=== PATIENT | female | born 1995 | race African-American/Black ===

== ENCOUNTER 2017-06-20 17:03 | Emergency (ER) | payer OTHER ==
[2017-06-20 17:16] VITALS: BP 142/95
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
[2017-06-20] MEDS ORDERED: KETOROLAC TROMETHAMINE 60 MG/2 ML SDV IM ONE (18:01)
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
== END 2017-06-20 19:44 | disposition home or self-care (01) ==
LOC: ER 17:03
DX: S43.402A Unspecified sprain of left shoulder joint, initial encounter (principal); S83.502A Sprain of unspecified cruciate ligament of left knee, initial encounter; V43.62XA Car passenger injured in collision with other type car in traffic accident, initial encounter
CPT/HCPCS: 99283; 96372; 73562; 73030; J1885